=== PATIENT | male | born 1995 | race Caucasian/White ===

== ENCOUNTER 2016-10-10 19:11 | Emergency (ER) | payer MEDICAID ==
[~2016-10-10] VITALS: Ht 167.6 cm; Wt 54.4 kg
[2016-10-10 19:11] VITALS: BP 141/69; PULSE 128; RESP 18; TEMP 98.8; O2SAT 100
--- NOTE | 2016-10-10 19:11 | NUR ---
Placed in room 1 . Placed on panel monitor, blood pressure machine and pulse oximeter. To gown for exam. Side rails up. Report given to Mathieu STOVER.
--- NOTE | 2016-10-10 19:25 | NUR ---
SADIA Cabrera at bedside examining patient.
--- NOTE | 2016-10-10 19:30 | NUR ---
Pt BIB EMS with ALOC, pt appeared disoriented , pupil size 4-reactive and dilated bilaterally. Skin intact, pt is confused and agitated. No sign of distress noted at this time. Will continue to monitor
--- NOTE | 2016-10-10 19:30 | NUR ---
Note glendalakesha in EDM - 10/11/16 at 0035 by [email or web address] pt bib wms with ALOC, pt appeared disoriented , pupil size 4-reactive and dilated bilaterally. Skin intact, pt is confused and agitated. No sign of distress noted at this time. Will continue to monitor
[2016-10-10 19:40] LABS: BASOPHILS # (AUTO) 0.1 K/uL (0.0-0.2); EOSINOPHILS % (AUTO) 0.1 % (0.0-4.0); HEMATOCRIT 42.8 % (36-54); HEMOGLOBIN 13.9 g/dL (14.0-18.0); LYMPHOCYTES # (AUTO) 1.4 K/uL (1.0-5.5); LYMPHOCYTES % (AUTO) 11.1 % (20.5-51.5); MEAN CORPUSCULAR HEMOGLOBIN 27 pg (27-31); MEAN CORPUSCULAR HGB CONC 33 % (32-36); MEAN CORPUSCULAR VOLUME 84 fL (79.0-98.0); MONOCYTES # (AUTO) 0.7 K/uL (0.0-1.0); MONOCYTES % (AUTO) 5.9 % (1.7-9.3); NEUTROPHILS # (AUTO) 10.1 K/uL (1.8-7.7); NEUTROPHILS % (AUTO) 81.9 % (40.0-70.0); PLATELET COUNT (AUTO) 425 K/uL (130-430); RED BLOOD CELL COUNT(AUTO) 5.09 MIL/uL (4.2-6.2); RED CELL DISTRIBUTION WIDTH 13.9 % (9.0-15.0); WHITE BLOOD COUNT (AUTO) 12.3 K/uL (4.8-10.8)
[2016-10-10 19:44] LABS: CALCIUM 9.2 mg/dL (8.4-11.0); CREATININE 1.28 mg/dL (0.55-1.30)
[2016-10-10 19:46] LABS: BILIRUBIN,URINE NEGATIVE (NEGATIVE); BLOOD, URINE NEGATIVE (NEGATIVE); CLARITY/URINE CLEAR (CLEAR); COLOR,URINE YELLOW (YELLOW); GLUCOSE,URINE NEGATIVE (NEGATIVE); KETONES,URINE 1+ (NEGATIVE); LEUKOCYTE ESTERASE ,URINE NEGATIVE (NEGATIVE); NITRITE, URINE NEGATIVE (NEGATIVE); PROTEIN URINE NEGATIVE (NEGATIVE); UROBILINOGEN,URINE 0.2 (0.2-1.0)
[2016-10-10 19:47] LABS: POTASSIUM 2.6 mmol/L (3.5-5.1)
[2016-10-10 19:50] LABS: ALBUMIN 4.6 g/dL (3.4-4.8); TOTAL BILIRUBIN 0.4 mg/dL (0.0-1.0); TOTAL PROTEIN, SERUM 7.9 g/dL (6.4-8.3)
[2016-10-10 19:55] LABS: BACTERIA,URINE FEW /HPF (None Seen); RBC,URINE NONE SEEN /HPF (0-3); WBC,URINE 0-3 /HPF (0-3)
[2016-10-10 19:56] LABS: MUCUS,URINE None Seen /LPF (None Seen)
[2016-10-10] MEDS ORDERED: DIPHENHYDRAMINE INJ 50 MG/ML VIAL IVP ONE (20:00)
[2016-10-10] MEDS ORDERED: NACL 0.9% 1,000 ML IV ONE (20:00)
[2016-10-10] MEDS ORDERED: HALOPERIDOL LACTATE 5 MG/ML VIAL IVP ONE (20:00)
--- NOTE | 2016-10-10 20:03 | NUR ---
Called Poison Control at [phone] and spoke with emperatriz. Per recommendations: Continue to watch patient, hydrate with fluid as needed, give benzodiazepine as needed. Dr. So notified. Will continue to monitor patient.
[2016-10-10 20:10] LABS: SALICYLATE 1 mg/dL (3-30)
[2016-10-10 20:11] LABS: ALCOHOL, BLOOD < 3 mg/dL (<10)
[2016-10-10 20:14] LABS: ACETAMINOPHEN < 1 ug/mL (1-30)
[2016-10-10] MEDS ORDERED: KCL 20 mEq in 100 mL (PREMIX) 100 ML IV ONE (20:15)
--- NOTE | 2016-10-10 20:20 | NUR ---
Parents at bedside, pt appeared more calm and cooperative. Will continue to monitor
--- NOTE | 2016-10-10 20:52 | NUR ---
Pt is more calm, cooperative, and comprehensive, pupil size 4 bilaterally and reactive. Pt able to rest and stated he will work with nurses.
--- NOTE | 2016-10-10 21:58 | NUR ---
parents at bedside, pt appeared resting comfortably. WIll continue to monitor
[2016-10-10 22:16] LABS: BARBITURATE, URINE NEGATIVE (NEG <=200); METHAMPHETAMINES SCREEN,URINE NEGATIVE (NEG <=500); URINE AMPHETAMINE NEGATIVE (NEG <=500); URINE METHADONE NEGATIVE (NEG <=200)
[2016-10-10 22:17] LABS: BENZODIAZEPINE, URINE NEGATIVE (NEG <=150); CANNABINOID, URINE POSITIVE (NEG <=50); COCAINE, URINE NEGATIVE (NEG <=150); OPIATE, URINE NEGATIVE (NEG <=100); PHENCYCLIDINE SCREEN,URINE NEGATIVE (NEG <=25); UR TRICYCLIC ANTIDEPRESSANTS NEGATIVE (NEG <=300); URINE OXYCODONE SCREEN NEGATIVE (NEG <=100); URINE PROPOXYPHENE SCREEN NEGATIVE (NEG <=300)
[2016-10-10 22:38] LABS: CALCIUM 7.8 mg/dL (8.4-11.0); CREATININE 0.9 mg/dL (0.55-1.30); POTASSIUM 3.9 mmol/L (3.5-5.1)
[2016-10-10 22:58] VITALS: BP 116/56; PULSE 87; RESP 16; TEMP 98.6; O2SAT 96
--- NOTE | 2016-10-10 22:58 | NUR ---
Patient given written and verbal discharge instructions and verbalizes understanding. ER MD So discussed with patient the results and treatment provided. Patient in stable condition. ID arm band removed. IV catheter removed intact and dressing applied, no active bleeding. No Rx given. Patient educated on pain management and to follow up with PMD. Pain Scale 0/10. Opportunity for questions provided and answered.
== END 2016-10-10 22:58 | disposition home or self-care (01) ==
LOC: SED 19:11 → EDBD 19:11 → SED 22:58
DX: T40.8X1A Poisoning by lysergide [LSD], accidental (unintentional), initial encounter (principal); R00.0 Tachycardia, unspecified; E87.6 Hypokalemia; E87.2 Acidosis; Y92.89 Other specified places as the place of occurrence of the external cause
CPT/HCPCS: 36415; 80048; 80053; 80307; 81000; 84484; 85025; 93005; 96365; 96366; 96375; 99285; G0480; G0481; G0482; J1200; J3480; J7030